=== PATIENT | female | born 1955 | race Caucasian/White ===

== ENCOUNTER 2016-08-06 12:59 | Inpatient (IN) | payer OTHER ==
[2016-08-06 13:11] VITALS: BP 102/81
[2016-08-06] MEDS ORDERED: COLACE100 M1 PO (13:47)
[2016-08-06] MEDS ORDERED: B-12 DOTS500 MCG PO (13:47)
[2016-08-06] MEDS ORDERED: GLUCOPHAGE1000 MG PO (13:48)
[2016-08-06] MEDS ORDERED: ZOCOR20 M1 PO (13:48)
[2016-08-06] MEDS ORDERED: NOVAPLUS L40 MG/0.4 SQ (13:48)
[2016-08-06 13:49] VITALS: BP 102/81
[2016-08-06 18:12] VITALS: BP 116/67
[2016-08-06 18:17] VITALS: BP 116/67
[2016-08-06 18:30] VITALS: BP 116/67
[2016-08-07 06:29] VITALS: BP 117/53
[2016-08-07 19:35] VITALS: BP 125/74
[2016-08-08 06:15] VITALS: BP 131/67
[2016-08-08 18:30] VITALS: BP 130/65
[2016-08-09 06:12] VITALS: BP 118/63
[2016-08-09 18:18] VITALS: BP 117/73
[2016-08-10 07:02] VITALS: BP 124/50
[2016-08-10 17:55] VITALS: BP 112/67
[2016-08-11 06:30] VITALS: BP 102/55
[2016-08-11 18:32] VITALS: BP 129/73
[2016-08-12 06:26] VITALS: BP 110/54
[2016-08-12 18:00] VITALS: BP 130/79
[2016-08-13 06:06] VITALS: BP 98/54
[2016-08-13 18:25] VITALS: BP 139/93
[2016-08-14 06:38] VITALS: BP 104/56
[2016-08-14 18:23] VITALS: BP 125/52
[2016-08-15 06:11] VITALS: BP 113/59
[2016-08-15 18:22] VITALS: BP 108/67
[2016-08-16 06:30] VITALS: BP 106/69
[2016-08-16 18:43] VITALS: BP 124/77
[2016-08-17 06:28] VITALS: BP 97/55
[2016-08-17 18:15] VITALS: BP 124/71
[2016-08-18 06:24] VITALS: BP 108/51
[2016-08-18 18:14] VITALS: BP 116/72
[2016-08-19 06:20] VITALS: BP 101/47
[2016-08-19 18:14] VITALS: BP 94/69
[2016-08-20 06:08] VITALS: BP 106/48
[2016-08-20 18:35] VITALS: BP 116/74
[2016-08-21 06:25] VITALS: BP 107/53
[2016-08-21 18:19] VITALS: BP 103/57
[2016-08-22 06:22] VITALS: BP 105/51
[2016-08-22 18:39] VITALS: BP 103/71
[2016-08-23 06:05] VITALS: BP 107/51
[2016-08-23 18:07] VITALS: BP 112/68
[2016-08-24 06:28] VITALS: BP 103/50
[2016-08-24 18:01] VITALS: BP 110/62
[2016-08-25 06:24] VITALS: BP 111/58
[2016-08-25 17:54] VITALS: BP 136/75
[2016-08-26 06:24] VITALS: BP 106/62
[2016-08-26 18:33] VITALS: BP 111/60
[2016-08-27 06:20] VITALS: BP 118/44
[2016-08-27] MEDS ORDERED: TRAMADOL 50 MG TAB PO (08:54)
[2016-08-27] MEDS ORDERED: LOW DOSE ASPIRI81 M1 PO (08:55)
== END 2016-08-27 14:10 | disposition home health service (06) | DRG 561 ==
LOC: MED/SURG 12:59
PROVIDERS: ADMIT Physician Assistant
DX: S72.001D Fracture of unspecified part of neck of right femur, subsequent encounter for closed fracture with routine healing (principal); R53.81 Other malaise; S90.31XD Contusion of right foot, subsequent encounter; E11.9 Type 2 diabetes mellitus without complications; Z79.84 Long term (current) use of oral hypoglycemic drugs
CPT/HCPCS: A4649; A6531; J1650

== ENCOUNTER → 2016-09-15 | Outpatient (CLI) | payer OTHER ==
[2016-08-27 06:20] VITALS: BP 118/44
[~2016-09-15] MED LIST: B-12 DOTS500 MCG PO; COLACE100 M1 PO; GLUCOPHAGE1000 MG PO; LOW DOSE ASPIRI81 M1 PO; NOVAPLUS L40 MG/0.4 SQ; TRAMADOL 50 MG TAB PO; ZOCOR20 M1 PO
== END ==
LOC: RAD 09:21
DX: Z09 Encounter for follow-up examination after completed treatment for conditions other than malignant neoplasm (principal); S72.051D Unspecified fracture of head of right femur, subsequent encounter for closed fracture with routine healing

== ENCOUNTER → 2016-10-20 | Outpatient (CLI) | payer OTHER | LOC: RAD 09:18 | DX: Z09 Encounter for follow-up examination after completed treatment for conditions other than malignant neoplasm (principal); S72.051D Unspecified fracture of head of right femur, subsequent encounter for closed fracture with routine healing ==

== ENCOUNTER 2016-12-15 13:30 | Outpatient (RCR) | payer OTHER | END 2016-12-16 | disposition home or self-care (01) | LOC: PT | DX: S72.8X1A Other fracture of right femur, initial encounter for closed fracture (principal) | CPT/HCPCS: G0283-GP ==

== ENCOUNTER 2016-12-31 13:00 | Outpatient (RCR) | payer OTHER | END 2016-12-31 13:30 | disposition home or self-care (01) | LOC: PT 13:00 | DX: S72.001D Fracture of unspecified part of neck of right femur, subsequent encounter for closed fracture with routine healing (principal); X58.XXXD Exposure to other specified factors, subsequent encounter ==

== ENCOUNTER → 2017-11-07 | Outpatient (CLI) | payer OTHER ==
[2017-11-07 09:05] LABS: ALBUMIN 4.4 g/dL (3.5-5.0); BUN/CREATININE RATIO 18.5 (6.0-26.0); CALCIUM 10.3 mg/dL (8.4-10.2); POTASSIUM 4.5 mmol/L (3.6-5.0); TOTAL BILIRUBIN 0.7 mg/dL (0.2-1.3); TOTAL PROTEIN 8.3 g/dL (6.3-8.2)
== END ==
LOC: LAB 08:25
PROVIDERS: Family Medicine
DX: E78.5 Hyperlipidemia, unspecified (principal)